=== PATIENT | male | born 1995 | race Caucasian/White ===

== ENCOUNTER 2022-05-10 19:06 | Emergency (ER) | payer SELFPAY ==
[2022-05-10 23:14] LABS: BLOOD UREA NITROGEN,BUN 18 mg/dL (7.0-18.0); CHLORIDE,CL 100 mmol/L (98-107); GLUCOSE RANDOM 114 mg/dL (74-106); POTASSIUM,K 3.4 mmol/L (3.5-5.1); SODIUM,NA 137 mmol/L (136-148)
[2022-05-10 23:26] LABS: ESTIMATED GFR 86 mL/min (>60)
== END 2022-05-11 02:00 ==
LOC: MW.ED 19:06
DX: R45.851 Suicidal ideations (principal); Z20.822 Contact with and (suspected) exposure to COVID-19
CPT/HCPCS: 36415; 80053; 80305-QW; 80307; 84439; 84443; 85025; 93005; 93010; 99284; 99285; U0002